=== PATIENT | male | born 1960 | race Caucasian/White ===

== ENCOUNTER → 2023-02-15 | Outpatient (REF) | LOC: COL.CARD 08:25 | DX: Z01.810 Encounter for preprocedural cardiovascular examination (principal) ==

== ENCOUNTER → 2023-11-07 | Outpatient (CLI) | payer BC | LOC: MHCPAIN 10:12 | DX: M47.817 Spondylosis without myelopathy or radiculopathy, lumbosacral region (principal); M54.50 Low back pain, unspecified ==

== ENCOUNTER → 2024-01-17 | Outpatient (CLI) | payer BC | LOC: COL.RAD 13:14 | DX: R10.9 Unspecified abdominal pain (principal) ==